=== PATIENT | female | born 1955 | race Two or more races ===

== ENCOUNTER 2023-08-13 10:28 | Emergency (ER) | payer SELFPAY ==
[2023-08-13] MEDS: ACETAMINOPHEN 500 MG TABLET PO STA (11:35)
[2023-08-13] MEDS: SODIUM CHLORIDE 0.9% 1,000 ML IV STA ×2 (11:35→13:15)
[2023-08-13 11:44] LABS: BASOPHILS % (AUTO) 0.2 %; HCT - HEMATOCRIT 37.4 % (37.0-47.0); HGB - HEMOGLOBIN 11.8 g/dL (12.0-16.0); LYMPHOCYTES # (AUTO) 1.1 10^3/uL (1.5-3.5); LYMPHOCYTES % (AUTO) 8.6 %; MEAN CORPUSCULAR HEMOGLOBIN 26.4 pg (27.0-31.0); MEAN CORPUSCULAR HGB CONC 31.6 g/dL (32.0-36.0); MEAN CORPUSCULAR VOLUME 83.7 fL (81.0-99.0); MEAN PLATELET VOLUME 8.7 fL (7.9-10.8); MONOCYTES # (AUTO) 0.8 10^3/uL (0.0-1.0); MONOCYTES % (AUTO) 6.5 %; NEUTROPHILS # (AUTO) 10.5 10^3/uL (1.5-6.6); NEUTROPHILS % (AUTO) 84.2 %; PLT - PLATELET COUNT 332 10^3/uL (130-450); RED BLOOD COUNT 4.47 10^6/uL (4.20-5.40); WHITE BLOOD COUNT 12.5 x10^3/uL (4.8-10.8)
[2023-08-13 11:53] LABS: B. PARAPERTUSSIS- RESP PCR PAN NOT DETECTED; B. PERTUSSIS- RESP PCR PANEL NOT DETECTED; C. PNEUMONIAE- RESP PCR PANEL NOT DETECTED; CORONAVIRUS 229E-RESP PCR NOT DETECTED; CORONAVIRUS HKU1-RESP PCR NOT DETECTED; CORONAVIRUS NL63-RESP PCR NOT DETECTED; CORONAVIRUS OC43-RESP PCR NOT DETECTED; HUMAN METAPNEUMOVIRUS NOT DETECTED; INFLUENZA A- RESP PCR PANEL NOT DETECTED; INFLUENZA B - RESP PCR PANEL NOT DETECTED; M. PNEUMONIAE- RESP PCR PANEL NOT DETECTED; PARAINFLUENZA VIRUS 1 NOT DETECTED; PARAINFLUENZA VIRUS 2 NOT DETECTED; PARAINFLUENZA VIRUS 3 NOT DETECTED; PARAINFLUENZA VIRUS 4 NOT DETECTED; RHINOVIRUS/ENTEROVIRUS NOT DETECTED; RSV- RESP PCR PANEL NOT DETECTED; SARS-CoV-2 -RESP PCR PANEL NOT DETECTED
--- NOTE | 2023-08-13 11:58 | XRAY Report ---
PROCEDURE: Chest 1V INDICATIONS: fever/weak TECHNIQUE: One view of the chest was acquired. COMPARISON: None. FINDINGS: Surgical changes and devices: None. Lungs and pleura: No pleural effusions or pneumothorax. Lungs are clear. Peribronchial cuffing. Mediastinum: Mediastinal contours appear normal. Heart size is normal. Bones and chest wall: No suspicious bony lesions. Overlying soft tissues appear unremarkable. IMPRESSION: Peribronchial cuffing, suggestive of infectious or inflammatory bronchitis. Reviewed by: Aramis Kennedy MD on 08/13/2023 11:57 AM PDT Approved by: Aramis Kennedy MD on 08/13/2023 11:57 AM PDT Station ID: [id number]
[2023-08-13 12:04] LABS: ALBUMIN 3.8 g/dL (3.2-5.5); BILIRUBIN,TOTAL 0.8 mg/dL (0.2-1.0); CALCIUM 10.2 mg/dL (8.5-10.3); CREATININE 0.9 mg/dL (0.6-1.3); TOTAL PROTEIN 7.8 g/dL (6.4-8.9)
--- NOTE | 2023-08-13 12:13 | CT Report ---
PROCEDURE: Head WO INDICATIONS: confusion TECHNIQUE: Noncontrast 4.5 mm thick angled axial sections acquired from the foramen magnum to the vertex. For r adiation dose reduction, the following was used: automated exposure control, adjustment of mA and/or kV according to patient size. COMPARISON: None. FINDINGS: Image quality: Excellent. CSF spaces: Basal cisterns are patent. No extra-axial fluid collections. Ventricles are normal in size and shape. Brain: No midline shift. No intracranial masses or hemorrhage. Cormier-white matter interface is norm al. Bilateral cavernous carotid atherosclerotic calcifications. There is either a prominent dilated perivascular space versus old lacunar infarct in the deep white matter subjacent to the right basal g anglia. Skull and face: Calvarium and visualized facial bones are intact, without suspicious lesions. Sinuses: Visualized sinuses and mastoids are clear. IMPRESSION: No acute intracranial pathology. Reviewed by: Shiva Cortez MD on 08/13/2023 12:12 PM PDT Approved by: Shiva Cortez MD on 08/13/2023 12:12 PM PDT Station ID: [id number]
[2023-08-13 12:25] LABS: BILIRUBIN,URINE NEGATIVE (NEGATIVE); GLUCOSE, URINE (UA) >=1000 mg/dL (NEGATIVE); KETONES,URINE (UA) 40 mg/dL (NEGATIVE); LEUKOCYTE ESTERASE, URINE NEGATIVE (NEGATIVE); NITRITE,URINE NEGATIVE (NEGATIVE); OCCULT BLOOD,URINE SMALL (NEGATIVE); PH,URINE 6.5 PH (5.0-7.5); PROTEIN,URINE 100 mg/dL (NEGATIVE); UROBILINOGEN,URINE 0.2 (NORMAL) E.U./dL (NORMAL)
[2023-08-13 12:26] LABS: CLARITY,URINE CLEAR (CLEAR)
[2023-08-13 12:49] LABS: BACTERIA,URINE Few /HPF (None Seen); SQUAMOUS EPITHELIAL CELL,UR FEW Squamous (<= Few)
--- NOTE | 2023-08-13 13:02 | ED Physician Documentation ---
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 Today she was more weak so her sister took her to the walk-in clinic. They were concerned that her heart rate was elevated and directed her to the emergency department. History is limited even with the use of the senior resident care director service. Patient denies cough or congestion, abdominal pain. Denies dysuria. Review of Systems Unable to obtain: Confused PD PAST MEDICAL HISTORY - Past Medical History Past Medical History: Yes Cardiovascular: Hypertension Endocrine/Autoimmune: Type 2 diabetes - Past Surgical History Past Surgical History: Yes General: Appendectomy - Present Medications Home Medications: Ambulatory Orders Medication Instructions Recorded Confirmed Amox/Clav 875/125 [Augmentin] 1 each PO Q12H #14 tablet 08/13/23 Azithromycin [Zithromax] 1 tab PO DAILY #6 tablet 08/13/23 - Allergies Allergies/Adverse Reactions: Allergies Allergy/AdvReac Type Severity Reaction Status Date / Time No Known Drug Allergies Allergy Verified 08/13/23 10:40 - Social History Does the pt smoke?: No Smoking Status: Never smoker PD ED PE NORMAL - General General: No acute distress, Well developed/nourished. 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 No: Alert and oriented X 3 (AO x2) Eye Opening: Spontaneous Motor: Obeys Commands Verbal: Confused GCS Score: 14 Results - Vitals Vitals: Vital Signs - 24 hr 08/13/23 08/13/23 08/13/23 10:36 11:24 12:59 Temperature 36.7 C 39.1 C H 39.4 C H Heart Rate 124 H 106 H Respiratory 20 21 Rate Blood Pressure 183/73 H 140/66 H O2 Saturation 99 95 08/13/23 08/13/23 14:07 16:00 Temperature 36.6 C Heart Rate 82 Respiratory 18 Rate Blood Pressure 113/72 O2 Saturation 97 Oxygen O2 Source Room air - EKG (time done) 1101 EKG releavant findings:: EKG personally interpreted by author of this note. Relevant findings are: Rate 109, sinus tachycardia, no STEMI, QTc 412 - Labs Labs: Laboratory Tests 08/13/23 08/13/23 08/13/23 10:51 11:35 11:35 WBC 12.5 H RBC 4.47 Hgb 11.8 L Hct 37.4 MCV 83.7 MCH 26.4 L MCHC 31.6 L RDW 16.0 H Plt Count 332 MPV 8.7 Neut # (Auto) 10.5 H Lymph # (Auto) 1.1 L [place] # (Auto) 0.8 Eos # (Auto) 0.0 Baso # (Auto) 0.0 Absolute Nucleated RBC 0.00 Nucleated RBC % 0.0 Sodium 129 L Potassium 4.0 Chloride 98 L Carbon Dioxide 21 Anion Gap 10.0 BUN 16 Creatinine 0.9 Estimated GFR (MDRD) 62 L Glucose 134 H Lactic Acid Calcium 10.2 Total Bilirubin 0.8 AST 50 H ALT 41 Alkaline Phosphatase 153 H Total Protein 7.8 Albumin 3.8 Globulin 4.0 Albumin/Globulin Ratio 1.0 Lipase 12 Urine Color Urine Clarity Urine pH Ur Specific Omer Urine Protein Urine Glucose (UA) Urine Ketones Urine Occult Blood Urine Nitrite Urine Bilirubin Urine Urobilinogen Ur Leukocyte Esterase Urine RBC Urine WBC Ur Squamous Epith Cells Urine Bacteria Ur Microscopic Review Urine Culture Comments Nasal Adenovirus (PCR) NOT DETECTED Nasal B. parapertussis DNA (PCR) NOT DETECTED Nasal Coronavir 229E PCR NOT DETECTED Nasal Coronavir HKU1 PCR NOT DETECTED Nasal Coronavir NL63 PCR NOT DETECTED Nasal Coronavir OC43 PCR NOT DETECTED Nasal Enterovir/Rhinovir PCR NOT DETECTED Nasal Influenza B PCR NOT DETECTED Nasal Influenza A PCR NOT DETECTED Nasal Parainfluen 1 PCR NOT DETECTED Nasal Parainfluen 2 PCR NOT DETECTED Nasal Parainfluen 3 PCR NOT DETECTED Nasal Parainfluen 4 PCR NOT DETECTED Nasal RSV (PCR) NOT DETECTED Nasal B.pertussis DNA PCR NOT DETECTED Nasal C.pneumoniae (PCR) NOT DETECTED Leandro Human Metapneumo PCR NOT DETECTED Nasal M.pneumoniae (PCR) NOT DETECTED Nasal SARS-CoV-2 (PCR) NOT DETECTED 08/13/23 08/13/23 11:35 12:21 WBC RBC Hgb Hct MCV MCH MCHC RDW Plt Count MPV Neut # (Auto) Lymph # (Auto) [place] # (Auto) Eos # (Auto) Baso # (Auto) Absolute Nucleated RBC Nucleated RBC % Sodium Potassium Chloride Carbon Dioxide Anion Gap BUN Creatinine Estimated GFR (MDRD) Glucose Lactic Acid < 0.2 L Calcium Total Bilirubin AST ALT Alkaline Phosphatase Total Protein Albumin Globulin Albumin/Globulin Ratio Lipase Urine Color YELLOW Urine Clarity CLEAR Urine pH 6.5 Ur Specific Omer 1.015 Urine Protein 100 H Urine Glucose (UA) >=1000 H Urine Ketones 40 H Urine Occult Blood SMALL H Urine Nitrite NEGATIVE Urine Bilirubin NEGATIVE Urine Urobilinogen 0.2 (NORMAL) Ur Leukocyte Esterase NEGATIVE Urine RBC 6-10 H Urine WBC 4-5 Ur Squamous Epith Cells FEW Squamous Urine Bacteria Few Ur Microscopic Review INDICATED Urine Culture Comments NOT INDICATED Nasal Adenovirus (PCR) Nasal B. parapertussis DNA (PCR) Nasal Coronavir 229E PCR Nasal Coronavir HKU1 PCR Nasal Coronavir NL63 PCR Nasal Coronavir OC43 PCR Nasal Enterovir/Rhinovir PCR Nasal Influenza B PCR Nasal Influenza A PCR Nasal Parainfluen 1 PCR Nasal Parainfluen 2 PCR Nasal Parainfluen 3 PCR Nasal Parainfluen 4 PCR Nasal RSV (PCR) Nasal B.pertussis DNA PCR Nasal C.pneumoniae (PCR) Leandro Human Metapneumo PCR Nasal M.pneumoniae (PCR) Nasal SARS-CoV-2 (PCR) PD Medical Decision Making - ED course Complexity details: reviewed results, re-evaluated patient, d/w patient, d/w family ED course: Patient Is a 68-year-old female presenting for evaluation of fever and weakness with headache. She is noted to be tachycardic and febrile on arrival. She has no focal deficits but history is limited due to the language barrier and patient appears to be a poor historian. Sepsis workup was initiated. Chest x-ray which I reviewed did not reveal any focal consolidation. Urinalysis is negative for infection. Respiratory swab is unremarkable. CBC and chemistries were reviewed. CT of the head was obtained due to patient's report of headaches as well as chest abdomen pelvis as a source of fever was unclear. CT head is negative for bleed. CT chest demonstrates a left basilar infiltrate along with abnormal thyroid nodule. CT scan of the abdomen and pelvis demonstrates finding in the rectosigmoid region. Patient is feeling significantly better with fever reduction and IV fluids. She appears to be back to her baseline. She is sitting upright in the bed eyes bright and wide open and conversant with family. Reviewed CT findings with patient and family using the bioinformatics scientist service and they understand importance of close follow-up for the incidental findings. She is tolerating p.o. antibiotics. She is not hypoxic and does not appear to require hospitalization at this time. Patient counseled on concerning symptoms to return for and is ambulatory at discharge. Departure - Departure Disposition: 01 Home, Self Care Instructions: ED Pneumonia Adult Prescriptions: Amox/Clav 875/125 [Augmentin] 1 each PO Q12H #14 tablet Azithromycin [Zithromax] 1 tab PO DAILY #6 tablet Print Language: Armenian Comments: Your testing today shows that you have pneumonia in the left lung. There are also some incidental findings, 1 in the thyroid gland and 1 in the colon. You should have an outpatient ultrasound of your Thyroid and a colonoscopy. [facility] [place] Please make sure you also have close follow-up with your primary care provider to make sure that the pneumonia resolves and that you are doing better. Return to the ER with any worsening IMPRESSION: 1. Dense basilar pneumonia, left lower lobe. 2. Possible constricting lesion at the rectosigmoid junction. Recommend correlation with nonemergent colonoscopy. 3. No evidence of metastatic disease. 4. No evidence of acute abdominal process. 5. Gallstone. 6. Remote hysterectomy. Comment: Recommend nonemergent colonoscopy for possible constricting rectosigmoid junction lesion. Recommend serial PA and lateral chest films until resolution of left basilar pneumonia. IMPRESSION: 1. Dense pneumonia, basilar portion of left lower lobe. Associated hilar and mediastinal adenopathy, potentially reactive. 2. 4.3 cm left thyroid nodule. Forms: PCP List Discharge Date/Time: 08/13/23 16:42
[2023-08-13] MEDS: KETOROLAC 30 MG/ML VIAL IVP STA (13:15)
[2023-08-13] MEDS ORDERED: iohexoL-300 100 ML VIAL ONE (13:52)
--- NOTE | 2023-08-13 15:34 | CT Report ---
PROCEDURE: Abdomen/Pelvis W INDICATIONS: fever/blood in urine CONTRAST: 100ml omni 300 TECHNIQUE: After the administration of intravenous contrast, a CT scan of the abdomen and pelvis was performed. Images were recorded and evaluated at appropriate window settings. Reformats: coronal and sagittal. F or radiation dose reduction, the following was used: automated exposure control, adjustment of mA and /or kV according to patient size. COMPARISON: CT chest from the same date, AP chest film dated 08/13/2023. FINDINGS: Image quality: Diagnostic. Lower chest: Dense pneumonia, basilar left lower lobe. This is subtly present in the right hepatic re gion of the left lower lobe on the portable chest film, in retrospect.. Liver: No solid mass. Gallbladder: Tiny floating gallstone. No gallbladder wall thickening. Biliary tree: No intrahepatic or extrahepatic dilation, accounting for age. Spleen: No splenomegaly. Pancreas: No pancreatic ductal dilation. Adrenals: No adrenal nodule. Kidneys and ureters: No hydronephrosis. No renal cystic lesion which requires follow up. No solid mas s. Stomach, bowel and peritoneum: No gastric or small bowel dilation. No abnormal wall thickening. No pa thologic free fluid. Question focal constricting lesion at the rectosigmoid junction, suggested on ax ial image 114 of series 2 and sagittal image 122 of series 6. This is not definite. Moderately large fecal load. Lymph nodes: No central or retroperitoneal adenopathy. Vessels: No infrarenal aortic aneurysm. Patent portal vein. PELVIS Reproductive organs: Uterus is surgically absent. No adnexal masses.. Bladder: No abnormal wall thickening, accounting for underdistention. Pelvic lymph nodes: No pelvic adenopathy by size criteria. Bones: No aggressive osseous abnormality. Other: No significant ventral or inguinal hernia. IMPRESSION: 1. Dense basilar pneumonia, left lower lobe. 2. Possible constricting lesion at the rectosigmoid junction. Recommend correlation with nonemergent colonoscopy. 3. No evidence of metastatic disease. 4. No evidence of acute abdominal process. 5. Gallstone. 6. Remote hysterectomy. Comment: Recommend nonemergent colonoscopy for possible constricting rectosigmoid junction lesion. Re commend serial PA and lateral chest films until resolution of left basilar pneumonia. Reviewed by: Shiva Cortez MD on 08/13/2023 3:32 PM PDT Approved by: Shiva Cortez MD on 08/13/2023 3:32 PM PDT Station ID: [id number]
--- NOTE | 2023-08-13 15:39 | CT Report ---
PROCEDURE: Chest W INDICATIONS: fever/unclear source/AMS CONTRAST: 100ml omni 300 TECHNIQUE: After the administration of intravenous contrast, a CT scan of the chest was performed. Images were recorded and evaluated at appropriate window settings. Reformats: axial MIP of the chest, coronal and sagittal. For radiation dose reduction, the following was used: automated exposure control, adjustme nt of mA and/or kV according to patient size. COMPARISON: AP chest film from today, CT abdomen and pelvis from today as well.. FINDINGS: Image quality: Diagnostic. Chest wall and lower neck: 4.3 cm left lobe thyroid nodule. No breast mass. No axillary or supraclavi cular adenopathy by size. Lungs and pleura: There is a dense pneumonia involving the lateral basal segment and a portion of the posterior basal segment of the left lower lobe with air bronchograms present within it. This pneumon ia is quite subtle on the AP chest film, seen in retrospect. No pulmonary nodules. No pleural effusio ns. No pneumothorax. No suspicious pulmonary nodules which require follow up. Mediastinum: Heart size is normal. No pericardial effusion. No large vessel abnormality. There is ind eterminate adenopathy present with 2 focal subcarinal lymph nodes, the larger of which measures 1.9 x 1.2 cm on axial image 145, as well as a prominent perihilar left-sided lymph node on image 147 measu ring 1.5 x 1.7 cm. These may be reactive in nature.. Bones: No aggressive osseous abnormality. Upper Abdomen: Small gallstone.. IMPRESSION: 1. Dense pneumonia, basilar portion of left lower lobe. Associated hilar and mediastinal adenopathy, potentially reactive. 2. 4.3 cm left thyroid nodule. Comments: Recommend 3 month follow-up CT to document resolution of pneumonia and reevaluate adenopath y. Recommend nonemergent thyroid ultrasound for further evaluation of the 4.3 cm left lobe thyroid no dule Reviewed by: Shiva Cortez MD on 08/13/2023 3:38 PM PDT Approved by: Shiva Cortez MD on 08/13/2023 3:38 PM PDT Station ID: [id number]
[2023-08-13] MEDS: AMOX/CLAV 875 MG/125 MG TABLET PO STA (16:08)
[2023-08-13] MEDS: CEFPODOXIME PROXETIL 100 MG TABLET PO STA (16:09)
[2023-08-13 16:21] VITALS: BP 113/72; O2SAT 97
[2023-08-13] MEDS: iohexoL-300 100 ML VIAL IVP ONE (16:23)
== END 2023-08-13 16:42 | disposition home or self-care (01) ==
LOC: ED 10:28
DX: J18.9 Pneumonia, unspecified organism (principal); E04.1 Nontoxic single thyroid nodule; R93.3 Abnormal findings on diagnostic imaging of other parts of digestive tract; K80.20 Calculus of gallbladder without cholecystitis without obstruction; R59.0 Localized enlarged lymph nodes; R51.9 Headache, unspecified; Z90.710 Acquired absence of both cervix and uterus
CPT/HCPCS: 36415; 70450; 71045; 71260; 74177; 80053; 81001; 83605; 83690; 85025; 87040; 87633; 93005; 96361; 96374; 99284; A9270; Q9967; 81003; 87086